=== PATIENT | female | born 1965 | race Caucasian/White ===

== ENCOUNTER 2020-09-01 23:48 | Emergency (ER) | payer BC, OTHER, SELFPAY ==
--- NOTE | ~2020-09-01 | CT_ITS ---
EXAMINATION: CT ABDOMEN AND PELVIS WITHOUT CONTRAST CLINICAL INFORMATION: Left flank pain COMPARISON: None TECHNIQUE: Multidetector volumetric imaging was performed from the superior aspect of the liver through the pubic symphysis. Sagittal and coronal reformatted images were obtained on the technologist's workstation. This CT examination was performed using dose optimization techniques as appropriate, variously including the following: *Automated exposure control *Adjustment of mA and/or kV according to patient size (this includes techniques or standardized protocols for targeted exams where dose is matched to indication/reason for exam; i.e. extremities or head) *Use of iterative reconstruction technique DLP: 343 mGy-cm FINDINGS: LUNG BASES: The visualized lung bases are unremarkable. LIVER, GALLBLADDER, AND BILIARY TREE: The liver is normal in size, shape, and attenuation. Few scattered hepatic calcifications noted. No focal hepatic lesion or biliary ductal dilatation is identified. Patient is status post cholecystectomy. PANCREAS: Unremarkable. SPLEEN: Scattered calcified granulomas are present. ADRENAL GLANDS: Unremarkable. KIDNEYS AND URETERS: There is a distal left ureteral calculus measuring 5 mm with moderate hydronephrosis. A 3 mm left lower pole renal calculus is also noted. No right-sided hydronephrosis. Punctate right lower pole renal calculi noted. BLADDER: Unremarkable. GASTROINTESTINAL TRACT: The small and large bowel are unremarkable. The appendix is unremarkable. No free fluid or free air is seen. ABDOMINAL WALL: No significant hernia is appreciated. LYMPH NODES: Normal. VASCULAR: Unremarkable. PELVIC VISCERA: Patient is status post hysterectomy. OSSEOUS STRUCTURES: Unremarkable. CT/CT abdomen pelvis wo con IMPRESSION: 1. Distal left ureteral calculus measuring 5 mm with moderate hydronephrosis. 2. Bilateral renal calculi.
[2020-09-02 00:32] VITALS: BP 110/89; PULSE 121; RESP 18; TEMP 37; O2SAT 99; BMI 19.1
[2020-09-02 01:24] LABS: Glucose Urine UA NEG (NEG); Leukocyte Esterase Urine 1+ (NEG); Nitrite Urine NEG (NEG); Specific Gravity - Urine 1.025 (1.005-1.025); Urine Blood TRACE (NEG); Urine Ketones NEG (NEG); Urine Protein NEG (NEG-TRACE)
[2020-09-02 01:29] LABS: Appearance Urine HAZY; Color Urine YELLOW
[2020-09-02 01:33] LABS: Bacteria Urine 1+ /LPF; Mucus Urine 1+ /LPF; Squamous Epithelial Cell Urine 1+ /LPF; WBC Urine 30-49 /HPF (0-4)
--- NOTE | 2020-09-02 01:58 | ED_ITS ---
HPI - General Adult General Chief complaint: General Medical Stated complaint: ? UTI Time Seen by Provider: 09/02/20 01:50 Source: patient Mode of arrival: ambulatory Limitations: no limitations History of Present Illness HPI narrative: had zoom call with doctor - UA ordered, called later about UTI started on cipro took a dose but overall not feeling well with fevers/chills complaint: flank pain possible UTI Onset (ago): day(s) (1) Radiation: non-radiation Severity: moderate Quality: aching Pain Consistency: constant Relieving factors: none Exacerbating factors: none Associated symptoms: fever/chills Treatments prior to arrival: other (cipro) Related Data Previous Rx's Medication Instructions Recorded levofloxacin 500 mg PO DAILY 7 Days #7 tab 09/02/20 ondansetron 4 mg PO Q8H PRN #20 tab 09/02/20 prednisone 40 mg PO DAILY 4 Days #8 tab 09/02/20 Allergies Allergy/AdvReac Type Severity Reaction Status Date / Time Penicillins Allergy Anaphylaxis Verified 09/02/20 00:30 Tetracyclines Allergy Anaphylaxis Verified 09/02/20 00:30 Review of Systems Review of Systems: Constitutional : No Weight loss, pos Fever, pos Chills ENT/Mouth : No sore throat, No Rhinorrhea Eyes: No Swelling, No Redness Cardiovascular : No Chest Pain, No SOB, NoEdema Respiratory : No Cough, No Sputum, No Wheezing Gastrointestinal : Positive Nausea, no Vomiting, no Diarrhea, positive abdominal Pain, No Hematochezia, No Melena Genitourinary : No Dysuria, No Urinary Frequency, No Hematuria, No Urgency Musculoskeletal : No joint pain, No Myalgias, No Joint Swelling Skin : No Skin Lesions, No rash Neuro : No Weakness, No Numbness, No Dizziness, No Headache Psych : No Anxiety/Panic, No Depression Heme/Lymph: No Bruising, No Lymphadenopathy Endocrine : No Polyuria, No Polydipsia All other systems reviewed and are negative. COUNT INCLUDES THE [facility] Past Medical History Attestation statement: The following information was validated with the patient. Medical History (Updated 09/02/20 @ 03:28 by Peri Black DO) Migraines Social History Social History (Updated 09/02/20 @ 02:52 by Peri Black DO) Alcohol intake: never Smoking Status: Never smoker Advance Directives: No Advance Directives Information Provided: No Physical Exam Vital Signs: Vital Signs: Last Vital Signs Temp 98.9 F 09/02/20 02:43 Pulse 102 H 09/02/20 02:43 Resp 16 09/02/20 02:43 BP 93/60 09/02/20 02:43 Pulse Ox 100 09/02/20 02:43 Body Mass Index 19.1 Appearance: Alert. Oriented X3. No acute distress. Eyes: Pupils equal, round and reactive to light. ENT: Pharynx normal. Neck: Normal inspection. Neck supple. CVS: Normal heart rate and rhythm. Pulses normal. Respiratory: No respiratory distress. Breath sounds normal. Abdomen: Soft and nontender. Back: mild L CVA ttp Skin: Skin warm and dry. Normal skin color. Normal skin turgor. Extremities: No lower extremity edema. No calf ttp Neuro: Oriented X 3. No motor deficit. No sensory deficit. Course Course Course Narrative: BP per patient runs 80s / 40s, she has no WBC count, not vomiting, negative lactic acid, does have stone, UA has WBCs will give dose of prednisone and levofloxacin at this time can be managed as outpatient with Urology follow up, Cr normal Medical Decision Making MDM Narrative Medical decision making narrative: 55 yo female with L flank pain and fevers today told she had a UTI took a dose of cipro overall not feeling well at this time will need labs, CT scan for renal colic, UA recheck, dispo per results and findings at this time Lab Data Result diagrams: 09/02/20 02:18 09/02/20 02:18 Labs: Lab Results 09/02/20 09/02/20 09/02/20 Range/Units 00:49 02:18 02:18 WBC 9.2 (4.8-10.8) X10*3/uL RBC 3.83 L (4.20-5.50) X10*6/uL Hgb 12.5 (12.0-16.0) g/dl Hct 38.2 (37-47) % MCV 99.7 H (80-98) fL MCH 32.6 (27.0-33.0) pg MCHC 32.7 (31.0-35.0) g/dl RDW 12.2 (11.0-16.0) % Plt Count 171 (160-400) X10*3/uL MPV 9.4 (9.4-12.3) fL Immature Gran % (Auto) 0.3 (0.0-0.4) % Neut % (Auto) 92.0 H (45-73) % Lymph % (Auto) 4.9 L (20-40) % [place] % (Auto) 2.4 (2-11) % Eos % (Auto) 0.1 (0-4) % Baso % (Auto) 0.3 (0-2) % Lymph # (Auto) 0.5 L (1.2-4.9) X10*3/uL [place] # (Auto) 0.2 (0.1-1.2) X10*3/uL Eos # (Auto) 0.0 (0.0-0.4) X10*3/uL Baso # (Auto) 0.0 (0.0-0.2) X10*3/uL Abs Immat Gran (auto) 0.03 (0.00-0.03) X10*3/uL Absolute Neuts (auto) 8.5 H (2.0-8.3) X10*3/uL Absolute Nucleated RBC 0.000 (0.0-0.012) X10*3/uL Nucleated RBC % (auto) 0.0 (0.0-0.2) /100WBC Smear Tech's Comments VERIFIED Hold Blue Top SEE NOTE Sodium (135-145) mmol/L Potassium (3.3-5.1) mmol/L Chloride (96-108) mmol/L Carbon Dioxide (22-29) mmol/L Anion Gap (12-20) BUN (9-16) mg/dL Creatinine (0.5-1.4) mg/dL Estim Creat Clear Calc Estimated GFR Random Glucose (60-115) mg/dL Lactic Acid (0.5-2.0) mmol/L Calcium (8.4-10.2) mg/dL Magnesium (1.6-2.6) mg/dL Total Bilirubin (0.0-1.0) mg/dL Direct Bilirubin (0.0-0.5) mg/dL AST (5-31) U/L ALT (0-31) U/L Alkaline Phosphatase (39-117) U/L Total Protein (6.5-8.0) g/dL Albumin (3.5-5.0) g/dL Lipase (8-78) U/L Urine Color YELLOW Urine Appearance HAZY Urine pH 6.0 (5.0-8.0) Ur Specific [place] 1.025 (1.005-1.025) Urine Protein NEG (NEG-TRACE) MG/DL Urine Glucose (UA) NEG (NEG) MG/DL Urine Ketones NEG (NEG) MG/DL Urine Blood TRACE (NEG) Urine Nitrite NEG (NEG) Ur Leukocyte Esterase 1+ H (NEG) Urine RBC 1-4 (0) /HPF Urine WBC 30-49 H (0-4) /HPF Ur Squamous Epith Cells 1+ /LPF Urine Bacteria 1+ /LPF Urine Mucus 1+ /LPF 09/02/20 09/02/20 Range/Units 02:18 02:18 WBC (4.8-10.8) X10*3/uL RBC (4.20-5.50) X10*6/uL Hgb (12.0-16.0) g/dl Hct (37-47) % MCV (80-98) fL MCH (27.0-33.0) pg MCHC (31.0-35.0) g/dl RDW (11.0-16.0) % Plt Count (160-400) X10*3/uL MPV (9.4-12.3) fL Immature Gran % (Auto) (0.0-0.4) % Neut % (Auto) (45-73) % Lymph % (Auto) (20-40) % [place] % (Auto) (2-11) % Eos % (Auto) (0-4) % Baso % (Auto) (0-2) % Lymph # (Auto) (1.2-4.9) X10*3/uL [place] # (Auto) (0.1-1.2) X10*3/uL Eos # (Auto) (0.0-0.4) X10*3/uL Baso # (Auto) (0.0-0.2) X10*3/uL Abs Immat Gran (auto) (0.00-0.03) X10*3/uL Absolute Neuts (auto) (2.0-8.3) X10*3/uL Absolute Nucleated RBC (0.0-0.012) X10*3/uL Nucleated RBC % (auto) (0.0-0.2) /100WBC Smear Tech's Comments Hold Blue Top Sodium 144 (135-145) mmol/L Potassium 3.3 (3.3-5.1) mmol/L Chloride 113 H (96-108) mmol/L Carbon Dioxide 22 (22-29) mmol/L Anion Gap 12 (12-20) BUN 13 (9-16) mg/dL Creatinine 1.04 (0.5-1.4) mg/dL Estim Creat Clear Calc 46.8 Estimated GFR 55 Random Glucose 109 (60-115) mg/dL Lactic Acid 1.2 (0.5-2.0) mmol/L Calcium 9.4 (8.4-10.2) mg/dL Magnesium 1.9 (1.6-2.6) mg/dL Total Bilirubin 0.3 (0.0-1.0) mg/dL Direct Bilirubin 0.2 (0.0-0.5) mg/dL AST 61 H (5-31) U/L ALT 40 H (0-31) U/L Alkaline Phosphatase 67 (39-117) U/L Total Protein 6.7 (6.5-8.0) g/dL Albumin 4.2 (3.5-5.0) g/dL Lipase 17 (8-78) U/L Urine Color Urine Appearance Urine pH (5.0-8.0) Ur Specific [place] (1.005-1.025) Urine Protein (NEG-TRACE) MG/DL Urine Glucose (UA) (NEG) MG/DL Urine Ketones (NEG) MG/DL Urine Blood (NEG) Urine Nitrite (NEG) Ur Leukocyte Esterase (NEG) Urine RBC (0) /HPF Urine WBC (0-4) /HPF Ur Squamous Epith Cells /LPF Urine Bacteria /LPF Urine Mucus /LPF Discharge Plan Discharge Clinical Impression: Ureterolithiasis, Elevated LFTs UTI (urinary tract infection) Qualifiers: Urinary tract infection type: site unspecified Hematuria presence: without hematuria Qualified Code(s): N39.0 - Urinary tract infection, site not specified Patient Disposition: Home, Self-Care Instructions: Urinary Tract Infection in Women (ED), Renal Colic (ED) Additional Instructions: return to ED for any worsening symptoms or concerns stop taking CIPRO take levofloxacin 500mg daily along with steroids Prescriptions: New prednisone 20 mg tablet 40 mg PO DAILY 4 Days Qty: 8 RF: 0 ondansetron 4 mg tablet,disintegrating 4 mg PO Q8H PRN (Reason: nausea and vomiting) Qty: 20 RF: 0 levofloxacin 500 mg tablet 500 mg PO DAILY 7 Days Qty: 7 RF: 0 Referrals: Rich Osborne MD [Physician] - 2 days (if not better) Stand Alone Forms: Work/School Release
[2020-09-02 02:26] LABS: Basophils Percent Auto 0.3 % (0-2); Eosinophils Percent Auto 0.1 % (0-4); Hematocrit 38.2 % (37-47); Hemoglobin 12.5 g/dl (12.0-16.0); Imm Gran Abs Auto 0.03 X10*3/uL (0.00-0.03); Imm Gran Pct Auto 0.3 % (0.0-0.4); Lymphocytes Absolute Auto 0.5 X10*3/uL (1.2-4.9); Lymphocytes Percent Auto 4.9 % (20-40); MANUAL DIFF FLAG SCAN; Mean Corpuscular HGB Conc 32.7 g/dl (31.0-35.0); Mean Corpuscular Hemoglobin 32.6 pg (27.0-33.0); Mean Corpuscular Volume 99.7 fL (80-98); Mean Platelet Volume 9.4 fL (9.4-12.3); Monocytes Absolute Auto 0.2 X10*3/uL (0.1-1.2); Monocytes Percent Auto 2.4 % (2-11); Neutrophils Absolute Auto 8.5 X10*3/uL (2.0-8.3); Platelet Count 171 X10*3/uL (160-400); Red Blood Count 3.83 X10*6/uL (4.20-5.50); Red Cell Distribution Width 12.2 % (11.0-16.0); SCAN SMEAR FLAG 1; White Blood Count 9.2 X10*3/uL (4.8-10.8)
[2020-09-02 02:41] LABS: SLIDE REVIEW VERIFIED
[2020-09-02 02:43] VITALS: BP 93/60; PULSE 102; RESP 16; TEMP 37.2; O2SAT 100
[2020-09-02] MEDS: 0.9 % Sodium Chloride 1,000 ML 999 ML IVCONT (02:50)
[2020-09-02 03:01] LABS: Lactic Acid 1.2 mmol/L (0.5-2.0)
[2020-09-02 03:04] LABS: Alanine Aminotransferase 40 U/L (0-31); Albumin Level 4.2 g/dL (3.5-5.0); Alkaline Phosphatase 67 U/L (39-117); Anion Gap 12 (12-20); Aspartate Amino Transferase 61 U/L (5-31); Bilirubin Direct 0.2 mg/dL (0.0-0.5); Bilirubin Total 0.3 mg/dL (0.0-1.0); Blood Urea Nitrogen 13 mg/dL (9-16); Calcium 9.4 mg/dL (8.4-10.2); Carbon Dioxide 22 mmol/L (22-29); Chloride 113 mmol/L (96-108); Creatinine Clr Calc Pharmacy 46.8; Estimated Glomerular Filt Rate 55; Glucose Random 109 mg/dL (60-115); Lipase 17 U/L (8-78); Magnesium 1.9 mg/dL (1.6-2.6); Potassium 3.3 mmol/L (3.3-5.1); Sodium 144 mmol/L (135-145); Total Protein 6.7 g/dL (6.5-8.0)
[2020-09-02] MEDS: predniSONE 20 MG TABLET 60 MG PO (03:34)
[2020-09-02] MEDS: levoFLOXacin/D5W 500 MG/100 ML PIGGYBACK 100 MG IV (03:35)
== END 2020-09-02 05:11 | disposition home or self-care (01) ==
PROVIDERS: Emergency Provider Emergency Medicine; PCP Family Medicine
DX: N20.1 Calculus of ureter (principal); N39.0 Urinary tract infection, site not specified; R79.89 Other specified abnormal findings of blood chemistry; Z79.899 Other long term (current) drug therapy
CPT/HCPCS: 36415; 74176; 80048; 80076; 81001; 83605; 83690; 83735; 85025; 87040; 96360; 99284; J1956

== ENCOUNTER → 2020-09-10 08:56 | Outpatient (BNVA) | payer BC, OTHER, SELFPAY | PROVIDERS: PCP Family Medicine; Visit Provider Urology ==

== ENCOUNTER → 2020-09-11 13:54 | Day surgery (SDC) | payer BC, SELFPAY ==
--- NOTE | ~2020-09-11 | FL_ITS ---
EXAMINATION: XR FLUOROSCOPY WITH IMAGES CLINICAL INFORMATION: Left ureteral stone COMPARISON: Previous CT of the abdomen and pelvis 09/02/2020 TECHNIQUE: Fluoroscopy performed by Dr. Rich Osborne. Fluoroscopy time: 14 seconds Cumulative dose: 2 mg Images: 2 FINDINGS: 2 submitted fluoroscopic images demonstrate a left internal ureteral stent in satisfactory position. FL/FL guidance in OR IMPRESSION: Fluoroscopy guidance for left internal ureteral stent placement.
[2020-09-11 14:12] VITALS: BMI 19.5
[2020-09-11 14:14] VITALS: BMI 19.5
--- NOTE | 2020-09-11 14:38 | P.CONAN_ITS ---
[facility] Active Problems Active Problems: All Active Problems (Updated 09/10/20 @ 09:38 by Rich montalvo MD) Ureteral stone with hydronephrosis (Acute) Nephrolithiasis (Acute) Past Medical History Medical History Hx: UTI (urinary tract infection) Migraines Social History Social History Alcohol intake: never Patient Tobacco Use Status: Never used Tobacco Use of substances other than those prescribed or required for medical reasons: No Are you DNR?: No Advance Directives: No Advance Directives Information Provided: Yes Recently lost weight without trying: No Meds Allergies Allergy/AdvReac Type Severity Reaction Status Date / Time Penicillins Allergy Anaphylaxis Verified 09/10/20 09:16 Tetracyclines Allergy Anaphylaxis Verified 09/10/20 09:16 Home Medications Medication Instructions Recorded Confirmed Last Taken Type duloxetine 20 mg capsule,delayed 20 mg PO BID 09/10/20 Unknown History release eletriptan 40 mg tablet mg PO 09/10/20 Unknown History frovatriptan 2.5 mg tablet mg PO 09/10/20 Unknown History latanoprost 0.005 % eye drops 1 drp OPHTHALMIC (EYE) ml 09/10/20 Unknown History levothyroxine 75 mcg tablet 75 mcg PO DAILY 09/10/20 Unknown History lidocaine 5 % topical patch 2 patch TOPICAL DAILY 09/10/20 Unknown History meclizine 25 mg tablet 25 mg PO TID PRN 09/10/20 Unknown History methocarbamol 500 mg tablet 500 mg PO TID 09/10/20 Unknown History onabotulinumtoxinA 200 unit unit IM 09/10/20 Unknown History solution for injection promethazine 25 mg tablet 25 mg PO BID PRN 09/10/20 Unknown History rizatriptan 10 mg tablet mg PO 09/10/20 Unknown History topiramate 25 mg capsule,extended mg PO 09/10/20 Unknown History release 24 hr ubrogepant 100 mg tablet mg PO 09/10/20 Unknown History Exam Exam Date and Time: September 11, 2020 1438 Height,Weight and Vital Signs: Height 5 ft 3 in Weight 49.895 kg Airway Mallampati Class: II TM Dist: >3cm Neck ROM: Full
[2020-09-11] MEDS: levoFLOXacin 500 MG TABLET PO (14:49)
--- NOTE | 2020-09-11 16:49 | P.OP_ITS ---
Operative Note Operative Note Date of Service: 09/11/20 Narrative: PreOperative Diagnosis: left ureteric stone Post Operative Diagnosis: Left ureteric stone Procedure: - Left cystoscopy, retrograde - ureteroscopy, laser lithotripsy, stone basketing - left stent placement Surgeon: Dr Rich Osborne Anesthesia: General Indications for procedure: This is a 55-year-old female. Had been seen in the office after the ER visit with distal left ureteric stone. Was initially scheduled for ureteroscopy next week. Had persistent nausea with vomiting this morning and has been added on for ureteroscopy with laser lithotripsy. Procedure: After informed consent was verified patient was brought to the operating placed in supine position. Anesthesia was administered per protocol. Patient was placed in modified dorsal lithotomy position and prepped and draped in a sterile fashion. Safety pause time-out and side of surgery confirmed. Antibiotics confirmed. A 22 [place] cystoscope was used to enter the bladder. Her bladder appeared to be somewhat inflamed from prior UTI. The ureteric orifice were normal position. The left ureteric orifice was cannulated and a retrograde performed. The defect of the distal portion of the ureteric orifice consistent with obstructing stone. A Sensor guidewire was placed easily up to the renal pelvis. Rigid ureteral scope was then placed alongside the wire the ureteric stone was encountered. Using a 360 micron holmium laser fiber the stone was broken into small pieces. Using a flat wire basket fragments were removed. Multiple passes were required. After all stone fragments been removed and a 6 [place] by 22 cm stent was placed. Good coil was seen in the renal pelvis and in the bladder. Bladder was emptied in its entirety. She tolerated procedure well was extubated in the operating room and transferred in stable condition to the recovery area. Pathology: Stones Drains: 6 [place] by 22 cm double-J
--- NOTE | 2020-09-11 16:49 | MHC.SHP ---
Pre-Procedural Eval Section A The patient is an INPATIENT: No Changes since office visit: No Cold of Flu in the past 2 weeks, No New Medical Problems, No Changes in Medication and No Patient answered all questions The History & Physical has been completed within 30 days and I have reviewed it.: Yes Section B Chief Complaint: Calculus of Kidney Allergies: Allergies Allergy/AdvReac Type Severity Reaction Status Date / Time Penicillins Allergy Anaphylaxis Verified 09/10/20 09:16 Tetracyclines Allergy Anaphylaxis Verified 09/10/20 09:16 Plan Diagnosis/Plan: Unchanged (Left grade, ureteroscopy, laser lithotripsy, stent) I have reviewed the history and physical and performed a pertinent physical examination on my patient. No changes have occurred unless specified.
[2020-09-11 16:55] VITALS: BP 104/63; PULSE 70; RESP 16; TEMP 36; O2SAT 99
[2020-09-11 17:00] VITALS: BP 96/57; PULSE 78; RESP 17; O2SAT 99
[2020-09-11 17:05] VITALS: BP 96/56; PULSE 80; RESP 16; O2SAT 100
[2020-09-11] MEDS: Phenazopyridine HCL 100 MG TABLET PO (17:07)
[2020-09-11 17:10] VITALS: BP 99/53; PULSE 84; RESP 16; O2SAT 100
[2020-09-11 17:15] VITALS: BP 101/61; PULSE 82; RESP 17; TEMP 36.3; O2SAT 100
[2020-09-11 17:30] VITALS: BP 106/61; PULSE 81; RESP 16; TEMP 36.3; O2SAT 99
== END | disposition home or self-care (01) ==
PROVIDERS: PCP Family Medicine; Visit Provider Urology
PROC: (CPT 52356; principal; 2020-09-11 16:00)
DX: N20.1 Calculus of ureter (principal); Z87.440 Personal history of urinary (tract) infections; Z79.899 Other long term (current) drug therapy; Z88.0 Allergy status to penicillin; Z88.1 Allergy status to other antibiotic agents
CPT/HCPCS: 52356; 52352; 82365; 88300; C1769; C2617; J1100; J1885; J2250; J2405; J2765; J3010; Q9967

== ENCOUNTER → 2020-09-18 08:48 | Outpatient (BNVA) | payer BC, SELFPAY | PROVIDERS: PCP Family Medicine; Visit Provider Urology | DX: N20.0 Calculus of kidney (principal) | CPT/HCPCS: 52310 ==

== ENCOUNTER 2020-11-18 16:00 | Outpatient (REF) | payer BC, SELFPAY ==
--- NOTE | ~2020-11-18 | US_ITS ---
EXAMINATION: US RETROPERITONEAL LIMITED (RENAL ONLY) CLINICAL INFORMATION: Calculus of kidney. COMPARISON: None TECHNIQUE: Real-time imaging of the kidneys. FINDINGS: RIGHT KIDNEY: 8.8 x 3.6 x 3.7 cm (SAG x AP x TRV). The kidney is normal in size, contour, and echogenicity. Renal cortical thickness is normal. No calculi or focal parenchymal lesions. No hydronephrosis. LEFT KIDNEY: 8.1 x 4.4 x 3.5 cm (SAG x AP x TRV). The kidney is normal in size, contour, and echogenicity. Renal cortical thickness is normal. No calculi or focal parenchymal lesions. No hydronephrosis. US/US renal BI IMPRESSION: Normal renal ultrasound.
== END 2020-11-18 16:01 | disposition home or self-care (01) ==
LOC: HO.US 16:00
PROVIDERS: Visit Provider Urology
DX: N20.0 Calculus of kidney (principal)
CPT/HCPCS: 76775

== ENCOUNTER → 2022-02-18 14:22 | Outpatient (BNVA) | payer BC, OTHER, SELFPAY | PROVIDERS: PCP Family Medicine; Referring Provider Family Medicine; Visit Provider Internal Medicine Cardiovascular Disease | DX: R55 Syncope and collapse (principal) | CPT/HCPCS: 93005 ==

== ENCOUNTER → 2022-03-04 09:12 | Outpatient (REF) | payer BC, OTHER, SELFPAY ==
--- NOTE | 2022-03-04 09:45 | CA_ITS ---
Transthoracic Echocardiogram Patient (Last, First, Middle): Liss Mcarthur, Gender: Female Date of : 1965 Age: 57 Procedure Date: 03/04/2022 Procedure Type: Transthoracic Echocardiogram Location: OP Height: 157.48 cm Weight: 49.9 kg BSA: 1.48 m2 Heart Rate: 65 bpm BP: 100 / 60 mmHg Packaging Engineer: SHAHIDA Escobedo MD: Zack Mejía MD Product Distribution Specialist: Zack Mejía MD Symptoms: R55 - Syncope and collapse Study Quality: Fair ECG Rhythm: Sinus Conclusions: - Normal study Findings Left Ventricle Normal left ventricular size, thickness, and systolic function. The visually estimated ejection fraction is between 60-65%. Diastolic function is normal for age. Peak GLS is -21.9%, which is normal Right Ventricle Normal right ventricular cavity size and systolic function. Atria Both atria are normal in size. There is no evidence of interatrial shunt. Aortic Valve Normal aortic valve structure and function. There is no aortic valve stenosis. There is no aortic valve regurgitation. Mitral Valve Normal mitral valve structure and function. There is trace mitral valve regurgitation. There is no mitral valve stenosis. Pulmonic Valve The pulmonic valve is likely normal. Tricuspid Valve Normal tricuspid valve structure. There is trace tricuspid valve regurgitation. The right ventricular systolic pressure is normal. The right ventricular systolic pressure is 16 mmHg. Normal right atrial pressure. There is no evidence of pulmonary hypertension. Great Vessels All visible segments of the aorta are normal in size. The pulmonary artery was not well visualized. Venous The inferior vena cava is normal in size and collapses greater than 50% with inspiration. Pericardium/Pleural There is no evidence of pericardial effusion. Prior Study Comparison No prior study available for comparison. Measurements 2D Linear Measurements IVSd: 0.69 0.6-0.9/0.6-1.0 cm LVIDd: 3.68 3.9-5.3/4.2-5.9 cm LVIDd Index: 2.49 2.4-3.2/2.2-3.1 cm/m2 LVIDs: 2.47 2.0-3.6 cm LVPWd: 0.70 0.7-1.1 cm LA Diam: 3.00 2.7-3.8/3.0-4.0 cm LAIDs Index: 2.03 1.5-2.3 cm/m2 LV Mass: 83.63 67-162/88-224 g LV Mass Index: 56.50 43-95/49-115 g/m2 LVOT Diam: 1.70 3.0+(-)1.3 cm 2D Systolic Function EF 4C: 58.50 >55% EF 2C: 62.70 >55% EF BiP: 59.80 >55% Mitral Valve MV Pk E: 0.72 MV PK A: 0.50 MV Decel Time: 234.00 E/A: 1.40 E'Lateral: 14.40 E'Medial: 10.30 E/E' Med: 7.00 E/E' Lat: 5.00 PHT: 69.00 MVA PHT: 3.19 Decel [place]: 3.05 Aortic Valve AoV Pk Matthew: 0.99 AoV Mn Matthew: 0.72 AoV VTI: 0.21 AoV Pk Grad: 4.00 Aov Mn Grad: 2.00 KATIE Cont.VTI: 1.99 LVOT LVOT Pk Matthew: 0.85 LVOT Mn Matthew: 0.58 LVOT VTI: 0.19 LVOT Pk Grad: 3.00 LVOT Mn Grad: 2.00 LVOT Diam: 1.70 LVOT Area: 2.27 Diastolic Function MV Pk E: 0.72 MV Pk A: 0.50 E/A: 1.40 E'Medial: 10.30 E/E' Med: 7.00 E' Laterial: 14.40 E/E' Lat: 5.00 Right Ventricle TAPSE (mm): 15.70 TVS' Matthew: 9.36 Tricuspid Valve TR Pk Matthew: 1.78 TR Pk Grad: 13.00 RA Press: 3.00 RVSP: 16.00 Great Vessels Aorta Sinus of Valsalva: 2.70 2.0-3.5 cm Ao Asc: 2.60 2.1-3.4 cm Pulmonary Valve PV Pk Matthew: 0.80 Peak PV Grad: 3.00 Updated in Other Vendor System with Status of Final Zack Mejía MD electronically signed on 03/05/2022 1:24:13 PM with status of Final
--- NOTE | 2022-03-04 09:45 | HM_ITS ---
* Total monitoring time 3 days. * Underlying rhythm is sinus. Average ventricular rate 83/Min. Range 61 to 135/Min. About 9.7% the time, rate > 100/Min. * Very rare supraventricular ventricular ectopy with minimal burden. * No significant bradycardia or pauses. * Diary entries correlate with sinus rhythm. MTDD
== END ==
LOC: HO.CARD 09:12
PROVIDERS: PCP Family Medicine; Visit Provider Internal Medicine Cardiovascular Disease
DX: R55 Syncope and collapse (principal)
CPT/HCPCS: 93242; 93306; 93356

== ENCOUNTER → 2022-05-05 15:30 | Outpatient (BNVA) | payer BC, OTHER, SELFPAY | PROVIDERS: PCP Family Medicine; Referring Provider Family Medicine; Visit Provider Internal Medicine Cardiovascular Disease | DX: Z13.89 Encounter for screening for other disorder (principal) ==

== ENCOUNTER 2022-10-10 14:33 | Outpatient (REF) | payer BC, OTHER, SELFPAY ==
--- NOTE | ~2022-10-10 | XR_ITS ---
EXAMINATION: XR LUMBOSACRAL SPINE WITH OBLIQUES CLINICAL INFORMATION: Spondylosis, artifact is from her shirt COMPARISON: None available. TECHNIQUE: 7 views including AP, both oblique, and lateral views of the lumbar spine. Lateral view of the lumbosacral junction. FINDINGS: Mild rightward curvature of the thoracolumbar spine. Surgical clips right upper quadrant. Lumbar vertebral body heights are preserved. 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 Moderate spondylosis with loss of disc space height at L5-S1. Multiple rounded calcifications in the upper abdomen, incompletely imaged, possibly related to hepatic granulomata identified on CT scan of 09/02/2020. Alignment is preserved on flexion and extension views. XR/XR lumbar spine 6V w bending IMPRESSION: Moderate degenerative changes at L5-S1. 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
== END 2022-10-10 14:34 | disposition home or self-care (01) ==
LOC: HO.XRAY 14:33
PROVIDERS: PCP Family Medicine; Visit Provider Nurse Practitioner Family
DX: M47.817 Spondylosis without myelopathy or radiculopathy, lumbosacral region (principal); M54.16 Radiculopathy, lumbar region; G43.909 Migraine, unspecified, not intractable, without status migrainosus
CPT/HCPCS: 72114

== ENCOUNTER 2022-12-13 12:53 | Outpatient (AMB) | payer OTHER, SELFPAY ==
--- NOTE | 2022-12-13 12:56 | A.OFFVIS_ITS ---
Intake Vital Signs 12/13/22 12:57 Height 5 ft 3 in Weight 101 lb 6.602 oz BMI 18.0 BP 96/52 L Blood Pressure Location Lt brachial Position Sitting Pulse 80 Intake Visit Reasons: screening colo and GI issues Intake Note: Liss presents in the office as a new patient for GI issues. CC: Last colonoscopy was done at [facility]. She has severe constipation. She states that sometimes she has pains in her stomach - she has IBS and she oglesby s not have a gall bladder. Field Care Coordinator Required: No Allergies Penicillins Allergy (Verified 12/13/22 13:00) Anaphylaxis Tetracyclines Allergy (Verified 12/13/22 13:00) Anaphylaxis HPI HPI Comments History of Present Illness Details 57y.o F with PMH of migraines who is here to discuss CRC screening as well as constipation. Reports previous hx of diarrhea that started after cholecystectomy and was manageable with cholestyramine however 5 years ago developed severe constipation. Stopped cholestyramine. Start metamucil and miralax which led to severe diarrhea so stopped that as well. Now at an average goes once a week. Has severe lower abdominal pain with cramping to the point of almost passing out, strains significantly. Diet reviewed and has very limited fiber intake. Had her last colonoscopy was in Feb 2006 (Dr Sumner) which was normal (except for remarkably twisted colon ). Was done because of sister's recent dx of crohns at that time. [facility] Medical History History of renal stone Hx: UTI (urinary tract infection) Migraines Surgical History History of partial hysterectomy Hx of cholecystectomy Hx of colonoscopy Family History Mother Breast cancer Social History Alcohol intake: never Patient Tobacco Use Status: Never used Tobacco Physical Exam Vital Signs: Last Vital Signs Pulse 80 12/13/22 12:57 BP 96/52 L 12/13/22 12:57 BMI result Body Mass Index 18.0 Gen appear: NAD HEENT: nonicteric, no cervical lymphadenopathy Chest: CTA CVS: Regular S1/S2 Abd: soft, nontender, nondistended, bowel sounds + Ext: no peripheral edema Neuro: A/Ox3, noted to move all extremities spontaneously Psych: interacting appropriately Assessment & Plan Assessment & Plan (1) Colon cancer screening: Code(s): Z12.11 - Encounter for screening for malignant neoplasm of colon (2) Constipation: Code(s): K59.00 - Constipation, unspecified Plan 1. CIC: Reviewed with the pt that constipation likely due to lack of fiber in diet which tends to be the reason in 80% of pts with chronic constipation. Other ddx include pelvic floor disorder, outlet obstruction, IBS-C. Plan: - Increase hydration to 10-12 cups a day - Add fiber supplementation - start with 0.5 tsp and increase to 1tbsp over 2 weeks - Miralax every other day - Elevate legs while having a BM. 2. CRC screening: pt reported hx of polyp but colo results reviewed from 2005 and normal. Will book for colo on elective basis. Pt requests Sutab and was informed that may have a copay. Alternatively can take GoLYTELY. Instructions reviewed for both. Follow up after colo. Medications: New peg 3350-electrolytes 236-22.74-6.74 -5.86 gram (Golytely) as per split prep instructions, until fecal effluent is clear 240 mL PO Q10M 4,000 mL 0RF colonoscopy sod sulf-pot chloride-mag sulf 1.479-0.188- 0.225 gram (Sutab) PO PER PKG DIR 1 kit 0RF Coding Level of Care Code New Pt Level 4 (95175) Diagnoses Colon cancer screening Z12.11 Constipation K59.00
[2022-12-13 12:57] VITALS: BP 96/52; PULSE 80; BMI 18.0
== END 2022-12-13 13:31 | disposition home or self-care (01) ==
PROVIDERS: PCP Family Medicine; Visit Provider Internal Medicine
DX: K59.00 Constipation, unspecified (principal); Z12.11 Encounter for screening for malignant neoplasm of colon
CPT/HCPCS: 99204

== ENCOUNTER → 2022-12-13 12:53 | Outpatient (BNVA) | payer OTHER, SELFPAY | PROVIDERS: PCP Family Medicine; Visit Provider Internal Medicine ==

== ENCOUNTER 2023-07-07 12:48 | Outpatient (AMB) | payer BC, OTHER, SELFPAY ==
--- NOTE | 2023-07-07 12:59 | A.OFFVIS_ITS ---
Intake Vital Signs 07/07/23 13:01 Height 5 ft 3 in Weight 90 lb 6.232 oz BMI 16.0 BP 119/73 Blood Pressure Location Lt brachial Position Sitting Pulse 100 Intake Visit Reasons: Constipation Intake Note: Liss presents in the office as a follow up for constipation. CC: She has not had her colonoscopy yet. She is losing weight. [employer] Required: No Allergies Penicillins Allergy (Verified 07/07/23 13:02) Anaphylaxis Tetracyclines Allergy (Verified 07/07/23 13:02) Anaphylaxis HPI HPI Comments History of Present Illness Details 57y.o F with PMH of migraines who is her e follow up constipation. 12/13/22: Reports previous hx of diarrhea that started after cholecystectomy and was manageable with cholestyramine however 5 years ago developed severe constipation. Stopped cholestyramine. Start metamucil and miralax which led to severe diarrhea so stopped that as well. Now at an average goes once a week. Has severe lower abdominal pain with cramping to the point of almost passing out, strains significantly. Diet reviewed and has very limited fiber intake. Had her last colonoscopy was in Feb 2006 (Dr Sumner) which was normal (except for remarkably twisted colon ). Was done because of sister's recent dx of crohns at that time. 07/07/23: Here for follow up. Reports ongoing issues with constipation despite trying miralax. Also has been losing weight unintentionally. HAs lost almost 10 lbs in the last months. No diarrhea, no blood in stool. Appetite is low and so are energy levels. In terms of constipation, reports frequent impactions with overflow diarrhea when takes miralax. Using senna sparingly. Has increased fiber by a lot. [facility] [place] Medical History History of renal stone Hx: UTI (urinary tract infection) Migraines Surgical History History of partial hysterectomy Hx of cholecystectomy Hx of colonoscopy Family History Mother Breast cancer Social History Alcohol intake: never Patient Tobacco Use Status: Never used Tobacco Review of Systems Const All systems reviewed & are unremarkable except as noted in HPI and below Physical Exam Vital Signs: BMI result Body Mass Index 16.0 NAD Nonicteric Speaking in full sentences A/Ox3, normal gait Assessment & Plan Assessment & Plan (1) Constipation: Code(s): K59.00 - Constipation, unspecified (2) Unintentional weight loss: Code(s): R63.4 - Abnormal weight loss Plan Ddx for unintentional weight loss in the context of worseing constipation include mass, stricture, chronic inflammation etc. Discussed that would recommend discontinuing fiber supplementation as seems is taking plenty through diet alone (just the oatmeal has 10g). Plan: - Increase hydration - Take miralax daily - Use glycerin supp as needed rima if feels impacted - elevate legs while havign a BM - CBC, CMP, divalents, iron panel - CT Abd/pel with contrast - EGD/colo for further eval - Pt already has Sutab for prep FOllow up after procedures Orders: Orders Ferritin Today K59.00 - Constipation, unspecified, R63.4 - Abnormal weight loss TSH reflex Free T4 Today K59.00 - Constipation, unspecified, R63.4 - Abnormal weight loss Vitamin D 25-OH Total Today K59.00 - Constipation, unspecified, R63.4 - Abnormal weight loss Hemoglobin A1c Today K59.00 - Constipation, unspecified, R63.4 - Abnormal weight loss Calcium Today K59.00 - Constipation, unspecified, R63.4 - Abnormal weight loss Magnesium Today K59.00 - Constipation, unspecified, R63.4 - Abnormal weight loss CT abdomen pelvis w IV con Today K59.00 - Constipation, unspecified, R63.4 - Abnormal weight loss Complete Blood Count no Diff Today K59.00 - Constipation, unspecified, R63.4 - Abnormal weight loss IRON PROFILE Today K59.00 - Constipation, unspecified, R63.4 - Abnormal weight loss Immunoglobulin A Today K59.00 - Constipation, unspecified, R63.4 - Abnormal weight loss Transglutaminase IgA Today K59.00 - Constipation, unspecified, R63.4 - Abnormal weight loss Coding Level of Care Code Est Pt Level 4 (14560) Diagnoses Constipation K59.00 Unintentional weight loss R63.4
[2023-07-07 13:01] VITALS: BP 119/73; PULSE 100; BMI 16.0
== END 2023-07-07 13:25 | disposition home or self-care (01) ==
PROVIDERS: PCP Family Medicine; Visit Provider Internal Medicine
DX: K59.00 Constipation, unspecified (principal); R63.4 Abnormal weight loss
CPT/HCPCS: 99214

== ENCOUNTER 2023-07-07 12:48 | Outpatient (REF) | payer BC, OTHER, SELFPAY ==
[2023-07-07 14:03] LABS: Hematocrit 39.1 % (37.0-47.0); Mean Corpuscular HGB Conc 33.2 g/dl (31.0-35.0); Mean Corpuscular Hemoglobin 33.2 pg (27.0-33.0); Mean Corpuscular Volume 99.7 fL (80.0-98.0); Mean Platelet Volume 9.6 fL (9.4-12.3); Platelet Count 283 X10*3/uL (160-400); Red Blood Count 3.92 X10*6/uL (4.20-5.50); Red Cell Distribution Width 12.8 % (11.0-16.0); White Blood Count 5.8 X10*3/uL (4.8-10.8)
[2023-07-07 14:22] LABS: Estimated Average Glucose 97 mg/dL
[2023-07-07 15:08] LABS: Calcium 8.9 mg/dL (8.4-10.2); Iron 108 mcg/dL (30-160); Magnesium 2.2 mg/dL (1.6-2.6); Percent Iron Saturation 50 % (15-50); Total Iron Binding Capacity 218 mcg/dL (228-428); Unsaturated Iron Binding 110 ug/dL
[2023-07-07 15:16] LABS: Ferritin 98 ng/mL (10-250); TSH reflex Free T4 0.49 uIU/mL (0.32-4.0); Vitamin D 25-OH Total 49.5 ng/mL (>30)
[2023-07-10 11:34] LABS: Immunoglobulin A 192 mg/dL (47-310)
[2023-07-12 20:12] LABS: Transglutaminase IgA <1.0 U/mL
== END 2023-07-07 12:49 | disposition home or self-care (01) ==
LOC: HO.LAB 12:48
PROVIDERS: PCP Family Medicine; Visit Provider Internal Medicine
DX: K59.00 Constipation, unspecified (principal); R63.4 Abnormal weight loss
CPT/HCPCS: 36415; 82306; 82310; 82728; 82784; 83036; 83540; 83735; 84443; 85027; 86364